=== PATIENT | female | born 2000 | race Two or more races ===

== ENCOUNTER 2020-04-24 12:37 | Emergency (ER) | payer OTHER ==
[2020-04-24 13:10] VITALS: BP 112/75; PULSE 82; TEMP 98.1; BMI 34.1
[2020-04-24] MEDS ORDERED: ACETAMINOPHEN 325 MG TABLET (FP) PO ONE (13:20)
[2020-04-24] MEDS ORDERED: ACETAMINOPHEN 325 MG TABLET (FP) ONE (13:23)
== END 2020-04-24 13:26 | disposition home or self-care (01) ==
LOC: JERFT 12:37
DX: S00.83XA Contusion of other part of head, initial encounter (principal)
CPT/HCPCS: 99283-25

== ENCOUNTER 2024-02-12 09:16 | Inpatient (IN) | payer OTHER ==
[2024-02-12 11:08] LABS: BASO % 0.4 % (0-2.0); EOS % 0.7 % (0-4.5); HEMATOCRIT 37.8 % (32.4-45.2); HEMOGLOBIN 12.9 GM/dL (10.7-15.3); LYMPH % 25.8 % (8-40); MCH 30.9 pg (25.7-33.7); MCHC 34.2 g/dl (32.0-36.0); MEAN CELL VOLUME 90.5 fl (80-96); MEAN PLT VOLUME 8.4 fl (7.5-11.1); MONO % 11.6 % (3.8-10.2); NEUT % 61.5 % (42.8-82.8); PLATELET COUNT 192 10^3/uL (134-434); RBC 4.18 M/mm3 (3.60-5.2); RDW 14.7 % (11.6-15.6); RETICULOCYTES 1.85 % (0.5-1.5); WHITE BLOOD COUNT 7.8 K/mm3 (4.0-10.0)
[2024-02-12 11:31] LABS: POTASSIUM 4.1 mmol/L (3.5-5.1)
[2024-02-12 11:33] LABS: CALCIUM 9.2 mg/dL (8.5-10.1)
[2024-02-12 11:34] LABS: ALBUMIN 2.7 g/dl (3.4-5.0); BLOOD UREA NITROGEN 7.2 mg/dL (7-18)
[2024-02-12 11:36] LABS: URIC ACID 2.9 mg/dL (2.6-7.2)
[2024-02-12 11:37] LABS: CREATININE 0.4 mg/dL (0.55-1.3)
[2024-02-12 11:38] LABS: BILIRUBIN,TOTAL 0.2 mg/dL (0.2-1); TOT PROT 6.3 g/dl (6.4-8.2)
[2024-02-12 12:39] LABS: EPI CELLS 27 /uL (0-25.1); HYALINE CASTS 1 /uL (0-3.1); URINE APPEARANCE CLOUDY; URINE BACTERIA 197 /uL (0-1359); URINE BILIRUBIN NEGATIVE (NEGATIVE); URINE COLOR YELLOW; URINE GLUCOSE (UA) NEGATIVE (NEGATIVE); URINE KETONE NEGATIVE (NEGATIVE); URINE LEUK ESTERASE 1+ (NEGATIVE); URINE NITRITE NEGATIVE (NEGATIVE); URINE PROTEIN NEGATIVE (NEGATIVE); URINE RBC 9 /uL (0-23.9); URINE UROBILINOGEN 0.2 mg/dL (0.2-1.0); URINE WBC 10 /uL (0-25.8)
[2024-02-12 13:14] LABS: METHADONE, UR NEGATIVE (NEGATIVE)
[2024-02-12 13:17] LABS: URINE BENZODIAZEPINES NEGATIVE (NEGATIVE)
[2024-02-12 13:23] LABS: PHENCYCLIDINE,URINE NEGATIVE (NEGATIVE)
[2024-02-12 13:24] LABS: COCAINE, UR NEGATIVE (NEGATIVE); OPIATES, URI NEGATIVE (NEGATIVE); URINE AMPHETAMINES NEGATIVE (NEGATIVE); URINE BARBITURATES NEGATIVE (NEGATIVE)
[2024-02-12] MEDS ORDERED: FENTANYL CITRATE/PF 50 MCG/ML VIAL ONE (13:35)
[2024-02-12] MEDS ORDERED: morphine SULFATE (PF) 1 MG/2 ML SYRINGE ONE (13:35)
[2024-02-12] MEDS ORDERED: METOCLOPRAMIDE HCL INJECTION 10 MG/2 ML VIAL ONE (13:36)
[2024-02-12] MEDS ORDERED: ONDANSETRON 4 MG/2 ML VIAL ONE (13:36)
[2024-02-12] MEDS ORDERED: ceFAZolin SODIUM 1 GM VIAL ONE (13:36)
[2024-02-12] MEDS ORDERED: PHENYLEPHRINE HCL 10 MG/1 ML SINGLE DOSE VIAL ONE (13:36)
[2024-02-12 13:42] LABS: INR 0.98 (0.83-1.09); PROTHROMBIN TIME (PATIENT) 11.3 SEC (9.7-13.0)
[2024-02-12 13:44] LABS: ACTIVATED PTT 27.8 SECONDS (25.2-36.5)
[2024-02-12] MEDS ORDERED: OXYTOCIN 30 UNITS in 0.9% NS 30 UNIT/500 ML INFUS.BAG IVPB ONE (13:51)
[2024-02-12] MEDS ORDERED: KETOROLAC TROMETHAMINE 30 MG/1 ML VIAL ONE (14:57)
[2024-02-12] MEDS ORDERED: METHYLERGONOVINE MALEATE 0.2 MG/1 ML AMP IM PRN (15:08)
[2024-02-12] MEDS ORDERED: FLUCONAZOLE 150 MG TABLET PO ONE (15:10)
[2024-02-12] MEDS ORDERED: ONDANSETRON 4 MG/2 ML VIAL IVPUSH PRN (15:15)
[2024-02-12] MEDS: OXYTOCIN 20 UNITS in 0.9% NS 20 UNIT/1,000 ML INFUS.BAG IV SCH (15:20)
[2024-02-12 15:35] LABS: CORD BASE EXCESS -4.9 mmol/L (0-2); CORD HCO3 23.1 mmHg (20-29); CORD PCO2 47.7 mmHg (30-78); CORD PCO2 65.8 mmHg (30-78); CORD pH 7.164 (7.14-7.44); CORD pH 7.282 (7.14-7.44)
[2024-02-12] MEDS ORDERED: OXYTOCIN 20 UNITS in 0.9% NS 20 UNIT/1,000 ML INFUS.BAG IV ONE (15:49)
[2024-02-12] MEDS ORDERED: ACETAMINOPHEN 1000 MG/100 ML BAG IVPB PRN (15:52)
[2024-02-12] MEDS ORDERED: IBUPROFEN 800 MG/8 ML IJ IVPB PRN (15:53)
[2024-02-12 16:12] VITALS: BMI 63.6
[2024-02-12] MEDS: morphine SULFATE/PF 1 MG/2 ML (2cc Syringe - QUVA) IT ONE (17:38)
[2024-02-12] MEDS: FLUCONAZOLE 150 MG TABLET PO ONE (18:04)
[2024-02-12] MEDS: metroNIDAZOLE 250 MG TABLET PO SCH (22:00)
[2024-02-13] MEDS ORDERED: oxyCODONE HCL 5 MG TABLET PO PRN ×2 (03:09)
[2024-02-13] MEDS: ACETAMINOPHEN 325 MG TABLET (FP) PO PRN (06:01)
[2024-02-13 08:13] LABS: BASO % 0.4 % (0-2.0); EOS % 0.9 % (0-4.5); HEMATOCRIT 35.5 % (32.4-45.2); HEMOGLOBIN 12.4 GM/dL (10.7-15.3); LYMPH % 17.3 % (8-40); MCH 31.7 pg (25.7-33.7); MCHC 34.9 g/dl (32.0-36.0); MEAN PLT VOLUME 8.7 fl (7.5-11.1); NEUT % 72.4 % (42.8-82.8); PLATELET COUNT 186 10^3/uL (134-434); RBC 3.91 M/mm3 (3.60-5.2); RDW 14.8 % (11.6-15.6); WHITE BLOOD COUNT 9.6 K/mm3 (4.0-10.0)
[2024-02-13] MEDS: valACYclovir HCL 500 MG TABLET (FP) PO ONE (10:18)
[2024-02-13] MEDS ORDERED: BISACODYL 10 MG SUPP.RECT RC PRN (15:09)
[2024-02-13] MEDS: IBUPROFEN 600 MG TABLET (FP) PO PRN (19:38)
[2024-02-13] MEDS: SIMETHICONE 80 MG TAB.CHEW (FP) PO PRN (19:38)
[2024-02-13] MEDS: metroNIDAZOLE 500 MG TABLET PO SCH (21:52)
[2024-02-14 22:35] VITALS: PULSE 90; RESP 18
[2024-02-15 07:29] LABS: BASO % 0.6 % (0-2.0); EOS % 2.6 % (0-4.5); HEMATOCRIT 32.2 % (32.4-45.2); HEMOGLOBIN 10.9 GM/dL (10.7-15.3); LYMPH % 32.1 % (8-40); MCH 31.4 pg (25.7-33.7); MCHC 33.9 g/dl (32.0-36.0); MEAN CELL VOLUME 92.6 fl (80-96); MEAN PLT VOLUME 8.3 fl (7.5-11.1); MONO % 9.2 % (3.8-10.2); NEUT % 55.5 % (42.8-82.8); PLATELET COUNT 199 10^3/uL (134-434); RBC 3.48 M/mm3 (3.60-5.2); WHITE BLOOD COUNT 8.3 K/mm3 (4.0-10.0)
[2024-02-15 09:03] VITALS: BP 136/83; TEMP 98.6
== END 2024-02-15 13:55 | disposition home or self-care (01) | DRG 540 ==
LOC: JDEL 09:16 → JLDR 12:16 → J3W 17:40
PROVIDERS: ADMIT Obstetrics & Gynecology Obstetrics; ATTEND Obstetrics & Gynecology Obstetrics
PROC: 10D00Z1 Extraction of Products of Conception, Low, Open Approach (ICD-10-PCS; principal; 2024-02-12)
DX: O98.52 Other viral diseases complicating childbirth (principal); O24.420 Gestational diabetes mellitus in childbirth, diet controlled; Z3A.38 38 weeks gestation of pregnancy; Z37.0 Single live birth
CPT/HCPCS: 36415; 36600; 59025; 76819-TC; 80053; 80307; 81003; 82570; 82803; 82977; 83010; 83986-QW; 84156; 84550; 85025; 85045; 85610; 85730; 87081; 88307-TC